=== PATIENT | female | born 1955 | race Caucasian/White ===

== ENCOUNTER 2018-09-06 13:23 | Observation (INO) | payer SELFPAY ==
[~2018-09-06] VITALS: Ht 167.6 cm; Wt 111.6 kg
[~2018-09-06 13:23] MED LIST: ADENOSINE 6 MG/2 ML (ADENOCARD) VIAL IV ONE; DILTIAZEM 125 MG/25 ML IV (CARDIZEM) IV ONE; DILTIAZEM 25 MG/5 ML INJ (CARDIZEM) VIAL ONE
--- NOTE | 2018-09-06 13:23 | NUR ---
Arrival by EMS. Hr 200. Patient is alert. Denies pain. On NRB 15l/min. sp02 98% BP 72/55. 20g ac to lac. Placed on crash cart monitor. patient flat 1326-ekg obtained. 18g iv to rt iv. labs and blood cultures obtained 1327-1l ns to rac open, 1l ns to lac open. HR will convert to SR with pac rate in 80's- will stay for 1-2 min then return to >190 1345-HR maintaining in the 80's bp 107/63. Rac fluids to tko. Patient denies c/o. assist pt with contacting family
[2018-09-06 13:47] LABS: BASOPHILS # (AUTO) 0.1 10^3/uL (0.0-0.1); BASOPHILS % (AUTO) 1 % (0-10); EOSINOPHILS # (AUTO) 0.2 10^3/uL (0.0-0.3); EOSINOPHILS % (AUTO) 2 % (0-10); HEMATOCRIT 45 % (35-52); HEMOGLOBIN 15.4 G/DL (11.5-16.0); LYMPHOCYTES # (AUTO) 4.6 X 10^3 (1.0-4.0); LYMPHOCYTES % (AUTO) 45 % (12-44); MEAN CORPUSCULAR HEMOGLOBIN 32 PG (25-34); MEAN CORPUSCULAR HGB CONC 35 G/DL (32-36); MEAN CORPUSCULAR VOLUME 93 FL (80-99); MEAN PLATELET VOLUME 9.6 FL (7.4-10.4); MONOCYTES # (AUTO) 0.8 X 10^3 (0.0-1.0); MONOCYTES % (AUTO) 8 % (0-12); NEUTROPHILS # (AUTO) 4.5 X 10^3 (1.8-7.8); NEUTROPHILS % (AUTO) 44 % (42-75); PLATELET COUNT 317 10^3/uL (130-400); RED CELL DISTRIBUTION WIDTH 14.4 % (10.0-14.5); WHITE BLOOD COUNT 10.2 10^3/uL (4.3-11.0)
--- OUTSIDE RECORDS SUMMARY | 2018-09-06 13:47 | XMS REPORT | Continuity of Care Document ---
Author Organization Unknown Address Unknown Allergies There is no data. Medications There is no data. Problems There is no data. Procedures There is no data. Results There is no data. Encounters ACCT No. Visit Date/Time Discharge Status Pt. Type Provider Facility Loc./Unit Complaint [id number] 07/12/2018 11:30:00 07/12/2018 23:59:59 CLS Outpatient [facility]
--- OUTSIDE RECORDS SUMMARY | 2018-09-06 13:47 | XMS REPORT ---
Author Author WESLY VALVERDE Organization [facility] Address [address] [place] [address] Care Team Providers Care Newspaper Delivery Driver Name Role Phone WESLY VALVERDE Unavailable PROBLEMS Type Condition ICD9-CM Code [id number] Code Onset Dates Condition Status SNOMED Code Problem Seasonal allergies J30.2 Active [id number] ALLERGIES No Known Allergies ENCOUNTERS Encounter Location Date Diagnosis [facility] [address] [facility] [id number] [address] Aug, Acute suppurative otitis media of both ears without spontaneous rupture of tympanic membranes, recurrence not specified H66.003 ; Lightheadedness R42 and Seasonal allergies J30.2 IMMUNIZATIONS No Known Immunizations SOCIAL HISTORY Never Assessed REASON FOR VISIT Fainting at [facility] this morning JStrasserRN PLAN OF CARE Activity Details Follow Up 1 Week, prn Reason:if symptoms not improving VITAL SIGNS Weight 294.6 lbs 2017-09-08 Temperature 98.5 degrees Fahrenheit 2017-09-08 Heart Rate 80 bpm 2017-09-08 Respiratory Rate 20 2017-09-08 Blood pressure systolic 132 mmHg 2017-09-08 Blood pressure diastolic 74 mmHg 2017-09-08 MEDICATIONS Medication Instructions Dosage Frequency Start Date End Date Duration Status Flonase 50 MCG/ACT Nasally twice a day 1 spray in each nostril 12h Aug, 30 day(s) Active Doxycycline Hyclate 100 MG Orally Once a day 1 capsule 24h Active Zyrtec Allergy 10 MG Orally Once a day 1 tablet 24h Active RESULTS No Results PROCEDURES No Known procedures INSTRUCTIONS MEDICATIONS ADMINISTERED No Known Medications
[2018-09-06 13:49] LABS: INR 0.9 (0.8-1.4); PROTHROMBIN TIME PATIENT 12.7 SEC (12.2-14.7)
[2018-09-06 13:52] LABS: BILIRUBIN,URINE NEGATIVE (NEGATIVE); CLARITY,URINE CLEAR; COLOR,URINE YELLOW; GLUCOSE, URINE (UA) NEGATIVE (NEGATIVE); KETONES,URINE NEGATIVE (NEGATIVE); LEUKOCYTE ESTERASE ,URINE NEGATIVE (NEGATIVE); NITRITE,URINE NEGATIVE (NEGATIVE); PH,URINE 6 (5-9); PROTEIN,URINE 1+ (NEGATIVE); UROBILINOGEN,URINE NORMAL (NORMAL)
[2018-09-06 14:00] LABS: BACTERIA,URINE NEGATIVE /HPF; SQUAMOUS EPITHELIAL CELL,UR 0-2 /HPF; WBC,URINE RARE /HPF
--- NOTE | 2018-09-06 14:00 | NUR ---
pt states that she does drink coffee in the morning 1-2 cups. then drinks green tea the rest of the day
[2018-09-06 14:02] LABS: ALANINE AMINOTRANSFERASE 6 U/L (0-55); ALBUMIN 3.8 GM/DL (3.2-4.5); ALKALINE PHOSPHATASE 75 U/L (40-136); BUN/CREATININE RATIO 14; CALCIUM 8.3 MG/DL (8.5-10.1); CARBON DIOXIDE 25 MMOL/L (21-32); CHLORIDE 106 MMOL/L (98-107); GFR ESTIMATED > 60; GLUCOSE 152 MG/DL (70-105); MAGNESIUM 1.9 MG/DL (1.8-2.4); POTASSIUM 3.4 MMOL/L (3.6-5.0); SODIUM 141 MMOL/L (135-145); TOTAL PROTEIN 6.1 GM/DL (6.4-8.2)
[2018-09-06] MEDS ORDERED: NS IV 1000 ML 2,000 ML ONE (14:14)
[2018-09-06 14:22] LABS: TSH (THYROID ANALYZER) 2.99 UIU/ML (0.35-4.94)
--- NOTE | 2018-09-06 14:27 | Diagnostic Imaging Report ---
EXAM: CHEST 1 VIEW, AP/PA ONLY INDICATION: Syncope. COMPARISON: None. FINDINGS: Normal heart size and pulmonary vascularity. No dense consolidation, pleural effusion or pneumothorax. No acute osseous findings. IMPRESSION: Negative chest. Dictated by: Dictated on workstation # [id number]
[2018-09-06] MEDS ORDERED: LACTATED RINGERS 1,000 ML IV ONE (14:29)
[2018-09-06 14:35] LABS: BILIRUBIN,TOTAL 0.5 MG/DL (0.1-1.0)
--- NOTE | 2018-09-06 14:46 | ED Cardiac General ---
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 Brought to rm 3 per ems. ALert and oriented Source: patient Exam Limitations: no limitations History of Present Illness Date Seen by Provider: Sep 06, 2018 Time Seen by Provider: 13:24 Initial Comments Here by EMS with report of patient who is feeling faint. EMS was summoned because she had this issue while at work and slumped over. Initially the call was for patient passing out or seizure. Patient states that she did not pass out. She felt herself slumped over and began to shake a little bit but she remembers the whole incident. She states during that time she was quite weak and felt fluttering in her chest. Chest and felt some chest pressure. She has never had anything like this before. EMS noted blood pressure was low and heart rate between 70s and 204. She apparently was fluctuating between SVT and sinus rhythm or tachycardia. Patient does admit to weakness and feeling funny. No one-sided weakness or other signs of stroke concerns. Patient states that she's never had anything like before. Does admit that she has been suffering from sinus problems recently and has been taking Zyrtec and to the direction of her doctor. She states that she does have allergies to antihistamines as they cause her blood pressure to go high but she does not have a problem with Zyrtec. EMS did initiate IV and gave 500 mL fluid bolus in route. On arrival, patient still vacillating between supraventricular tachycardia and what appears to be sinus or sinus tachycardia with PACs. Blood pressure on arrival 70s systolic. Patient placed on high flow oxygen as O2 saturation unreadable reasonable due to hypotension. Timing/Duration: 1/2 hour Severity: severe Location: central (pressure/palpitations) Prior CP/Workup: no prior chest pain Modifying Factors: improves with oxygen NTG SL DONOR SERVICES SPECIALIST: No ASA po DONOR SERVICES SPECIALIST: No Associated Systoms: Chest Pain; No Diaphoresis, No Fever/Chills, No Nausea/Vomiting; Shortness of Air, Syncope, Weakness Allergies and Home Medications Allergies Coded Allergies: Penicillins (Verified Allergy, Unknown, 09/06/18) codeine (Verified Allergy, Unknown, 09/06/18) oseltamivir (Verified Allergy, Unknown, 09/06/18) povidone-iodine (Verified Allergy, Unknown, 09/06/18) soap (Verified Allergy, Unknown, 09/06/18) Uncoded Allergies: ERYTHOMYCIN (Allergy, Unknown, 09/06/18) Patient Home Medication List Home Medication List Reviewed: Yes Review of Systems Review of Systems Constitutional: see HPI; No chills, No fever; weakness EENTM: See HPI, Nose Congestion, Other (sinus infection) Respiratory: See HPI; Denies Cough; Shortness of Air Cardiovascular: Chest Pain, Irregular Heart Rate, Lightheadedness, Palpitations Gastrointestinal: Denies Diarrhea, Denies Nausea, Denies Vomiting Genitourinary: No Symptoms Reported Musculoskeletal: no symptoms reported Skin: no symptoms reported All Other Systems Reviewed Negative Unless Noted: Yes Past Czqbpwq-Xalntx-Ogceme Hx Past Med/Social Hx: Reviewed Nursing Past Med/Soc Hx Patient Social History Alcohol Use: Denies Use Recreational Drug Use: No Smoking Status: Current Everyday Smoker Type Used: Cigarettes 2nd Hand Smoke Exposure: No Recent Foreign Travel: No Contact w/Someone Who Travel: No Recent Infectious Disease Expo: No Recent Hopitalizations: No Physical Abuse: No Sexual Abuse: No Mistreated: No Fear: No Seasonal Allergies Seasonal Allergies: Yes Past Medical History Surgeries: Yes Adenoidectomy (today. We will lobectomy and whatw so with your), Tonsillectomy, Tubal Ligation Respiratory: Yes Asthma, COPD Cardiac: Yes Heart Attack Neurological: No Genitourinary: No Gastrointestinal: Yes Hiatal Hernia Musculoskeletal: No Endocrine: No HEENT: No Cancer: No Psychosocial: No Integumentary: No Family Medical History Reviewed Nursing Family Hx No Pertinent Family Hx Physical Exam Vital Signs Vital Signs - First Documented 09/06/18 13:23 Temp 96.9 Pulse 192 Resp 21 B/P (MAP) 72/55 (61) Pulse Ox 98 O2 Delivery Non Rebreather O2 Flow Rate 15.00 FiO2 100 Capillary Refill : Less Than 3 Seconds Height, Weight, BMI Height: 5'5.00" Weight: 230lbs. oz. 104.821825vt; BMI Method:Estimated General Appearance: WD/WN, Moderate Distress, Obese HEENT: PERRL/EOMI, Pharynx Normal Neck: Non Tender, Supple Respiratory: Crackles (few scattered), Decreased Breath Sounds, Wheezing Cardiovascular: No Murmur, Irregularly Irregular, Tachycardia Gastrointestinal: Non Tender, Soft Extremity: Normal Range of Motion, Non Tender Neurologic/Psychiatric: Alert, Oriented x3 Skin: Normal Color, Warm/Dry Focused Exam Lactate Level 09/06/18 13:25: Lactic Acid Level 2.30*H 09/06/18 15:30: Lactic Acid Level Laboratory Tests Test 09/06/18 13:25 09/06/18 15:30 Lactic Acid Level 2.30 MMOL/L (0.50-2.00) *H Progress/Results/Core Measures Results/Orders Lab Results Laboratory Tests Test 09/06/18 13:25 09/06/18 13:42 09/06/18 15:30 Range/Units White Blood Count 10.2 4.3-11.0 10^3/uL Red Blood Count 4.80 4.35-5.85 10^6/uL Hemoglobin 15.4 11.5-16.0 G/DL Hematocrit 45 35-52 % Mean Corpuscular Volume 93 80-99 FL Mean Corpuscular Hemoglobin 32 25-34 PG Mean Corpuscular Hemoglobin Concent 35 32-36 G/DL Red Cell Distribution Width 14.4 10.0-14.5 % Platelet Count 317 130-400 10^3/uL Mean Platelet Volume 9.6 7.4-10.4 FL Neutrophils (%) (Auto) 44 42-75 % Lymphocytes (%) (Auto) 45 H 12-44 % Monocytes (%) (Auto) 8 0-12 % Eosinophils (%) (Auto) 2 0-10 % Basophils (%) (Auto) 1 0-10 % Neutrophils # (Auto) 4.5 1.8-7.8 X 10^3 Lymphocytes # (Auto) 4.6 H 1.0-4.0 X 10^3 Monocytes # (Auto) 0.8 0.0-1.0 X 10^3 Eosinophils # (Auto) 0.2 0.0-0.3 10^3/uL Basophils # (Auto) 0.1 0.0-0.1 10^3/uL Prothrombin Time 12.7 12.2-14.7 SEC INR Comment 0.9 0.8-1.4 Activated Partial Thromboplast Time 28 24-35 SEC D-Dimer 0.63 H 0.00-0.49 UG/ML Sodium Level 141 135-145 MMOL/L Potassium Level 3.4 L 3.6-5.0 MMOL/L Chloride Level 106 98-107 MMOL/L Carbon Dioxide Level 25 21-32 MMOL/L Anion Gap 10 5-14 MMOL/L Blood Urea Nitrogen 11 7-18 MG/DL Creatinine 0.80 0.60-1.30 MG/DL Estimat Glomerular Filtration Rate > 60 BUN/Creatinine Ratio 14 Glucose Level 152 H 70-105 MG/DL Lactic Acid Level 2.30 *H 0.50-2.00 MMOL/L Calcium Level 8.3 L 8.5-10.1 MG/DL Corrected Calcium 8.5 8.5-10.1 MG/DL Magnesium Level 1.9 1.8-2.4 MG/DL Total Bilirubin 0.5 0.1-1.0 MG/DL Aspartate Amino Transf (AST/SGOT) 13 5-34 U/L Alanine Aminotransferase (ALT/SGPT) 6 0-55 U/L Alkaline Phosphatase 75 40-136 U/L Myoglobin 58.6 10.0-92.0 NG/ML Troponin I < 0.028 <0.028 NG/ML C-Reactive Protein High Sensitivity 0.45 0.00-0.50 MG/DL B-Type Natriuretic Peptide 163.4 H <100.0 PG/ML Total Protein 6.1 L 6.4-8.2 GM/DL Albumin 3.8 3.2-4.5 GM/DL TSH [place] Testing 2.99 0.35-4.94 UIU/ML Urine Color YELLOW Urine Clarity CLEAR Urine pH 6 5-9 Urine Specific Jackson 1.010 L 1.016-1.022 Urine Protein 1+ H NEGATIVE Urine Glucose (UA) NEGATIVE NEGATIVE Urine Ketones NEGATIVE NEGATIVE Urine Nitrite NEGATIVE NEGATIVE Urine Bilirubin NEGATIVE NEGATIVE Urine Urobilinogen NORMAL NORMAL MG/DL Urine Leukocyte Esterase NEGATIVE NEGATIVE Urine RBC (Auto) NEGATIVE NEGATIVE Urine RBC NONE /HPF Urine WBC RARE /HPF Urine Squamous Epithelial Cells 0-2 /HPF Urine Crystals NONE /LPF Urine Bacteria NEGATIVE /HPF Urine Casts NONE /LPF Urine Mucus SMALL H /LPF Urine Culture Indicated NO My Orders Orders - SHERRI ELDER MD Cbc With Automated Diff (09/06/18 13:32) Magnesium (09/06/18 13:32) Chest 1 View, Ap/Pa Only (09/06/18 13:32) Ekg Tracing (09/06/18 13:32) Cardiac Profile 1 (09/06/18 13:32) Comprehensive Metabolic Panel (09/06/18 13:32) Myoglobin Serum (09/06/18 13:32) Protime With Inr (09/06/18 13:32) Partial Thromboplastin Time (09/06/18 13:32) O2 (09/06/18 13:32) Monitor-Rhythm Ecg Trace Only (09/06/18 13:32) Lipid Panel (09/07/18 06:00) Ed Iv/Invasive Line Start (09/06/18 13:32) BNP (09/06/18 13:32) Fibrin Degradation Products (09/06/18 13:32) Hs C Reactive Protein (09/06/18 13:32) Lactic Acid Analyzer (09/06/18 13:32) Thyroid Analyzer (09/06/18 13:32) Ua Culture If Indicated (09/06/18 13:32) Blood Culture (09/06/18 13:32) Sputum Culture (09/06/18 13:32) Ekg Tracing (09/06/18 13:32) Catheter(Urinary) Insert & Ass 03,15 (09/06/18 13:32) Ekg Tracing (09/06/18 13:46) Ns Iv 1000 Ml (Sodium Chloride 0.9%) (09/06/18 14:14) Ed Iv/Invasive Line Start (09/06/18 14:29) Lactated Ringers (Lr 1000 Ml Iv Solution (09/06/18 14:29) Aspirin Chewable Tablet (Baby Aspirin Ch (09/06/18 15:42) Echo W Doppler/Color Flow (09/07/18 08:00) Medications Given in ED Current Medications Medications Dose Ordered Sig/Erinn Route Start Time Stop Time Status Last Admin Dose Admin Lactated Ringer's 1,000 ml @ 0 mls/hr Q0M ONCE IV 09/06/18 14:29 09/06/18 14:31 DC 09/06/18 14:36 1,000 MLS/HR Sodium Chloride 2,000 ml @ ud STK-MED ONCE .ROUTE 09/06/18 14:14 09/06/18 14:20 DC 09/06/18 13:27 2,000 MLS/HR Vital Signs/I&O 09/06/18 09/06/18 13:23 13:23 Temp 96.9 Pulse 192 Resp 21 B/P (MAP) 72/55 (61) Pulse Ox 98 99 O2 Delivery Non Rebreather Non Rebreather O2 Flow Rate 15.00 15.00 FiO2 100 Blood Pressure Mean: 61 Progress Progress Note : Progress Note Seen and evaluated on arrival by EMS. Second IV established. Labs, EKG, chest x- ray, blood cultures and lactic acid ordered as etiology is currently unknown. I did discuss the case with Dr. Ross very early in the evaluation as she is having SVT changing to sinus with PACs rather rapidly. His recommendation is continue fluids and monitor for stability. We will hold on other agents for SVT including Cardizem and adenosine and see if patient becomes worse stable with fluids. Monitor patient. Carter catheter placed due to critical nature patient currently. 1415: Tachycardia has improved and patient now in sinus with multiple PACs. Blood pressure still low. She did get 500 mL normal saline from EMS and 2 L bolus are ongoing currently. 1515: Patient now doing much better and third liter bolus with LR was ordered which exceeds 30 mL/kg IV. Patient's lactic acid noted to be 2.3. Blood pressure has stabilized nicely at 130/81 currently heart rate is 65 and sinus rhythm and O2 sat 99% on 6 L via oxygen mask. Monitor patient. Currently no findings concerning for infection and this seems to be cardiac related although may have component of adverse effect of Zyrtec and dehydration. Monitor patient. 1529: ASA 300 mg by mouth. I did discuss the case with Dr. BERMEO. He sensation for admission, observation status. I did discuss the case with Dr. Ross at 1535 and he accepts patient in consult. He is requesting to be cardiac echo which was ordered. This will be done in the morning. All findings concerns were discussed with the patient who agrees with plan. Patient is stabilized and will go to medical floor on telemetry. Patient has Carter catheter in place and we will consider removing on arrival to floor. Initial ECG Impression Date: Sep 06, 2018 Initial ECG Impression Time: 13:26 Initial ECG Rate: 162 Initial ECG Rhythm: SVT Initial ECG Impression: SVT Initial ECG Comparisson: No Previous ECG Available Comment SVT noted after initial few beats of sinus rhythm with PACs. No evidence of ST elevation MO. Interpreted by me. Right axis deviation noted. EKG #1: EKG Time: 13:28 Rate: 189 Rhythm: SVT ECG Impression: SVT Comment Persistent SVT noted with right axis deviation. No evidence of ST elevation MO. Interpreted by me. EKG #2: EKG Time: 13:35 Rate: 93 Comment Sinus rhythm with PACs and occasional PVC noted. Rightward axis. No evidence of ST elevation MO. Interpreted by me. Change from previous of SVT. Diagnostic Imaging Diagonstic Imaging: Xray Plain Films/CT/US/NM/MRI: chest Comments [facility]ITAL[facility] Media [facility] [place], [place] NAME: CARL PHILIPPE [facility] REC#: [id number] PT STATUS: REG ER : 1955 PHYSICIAN: SHERRI ELDER MD ADMIT DATE: 09/06/18/ER Draft Date of Exam:09/06/18 CHEST 1 VIEW, AP/PA ONLY EXAM: CHEST 1 VIEW, AP/PA ONLY INDICATION: Syncope. COMPARISON: None. FINDINGS: Normal heart size and pulmonary vascularity. No dense consolidation, pleural effusion or pneumothorax. No acute osseous findings. IMPRESSION: Negative chest. Dictated on workstation # [id number] Dict: 09/06/18 1418 Trans: 09/06/18 1427 [facility] [id number] Interpreted by: VALENTIN ARMANDO MD Electronically signed by: Departure Communication (Admissions) Time/Spoke to Admitting Phy: 15:29 Time/Spoke to Consulting Phy: 15:35 Impression Primary Impression: Paroxysmal SVT (supraventricular tachycardia) Additional Impressions: Chest pain Qualified Codes: R07.9 - Chest pain, unspecified Lactic acidosis Disposition: ADMITTED INPATIENT Condition: Stable Admissions Decision to Admit Reason: Admit from ER (General) Decision to Admit/Date: Sep 06, 2018 Time/Decision to Admit Time: 15:29 SHERRI ELDER MD Sep 06, 2018 14:46
--- NOTE | 2018-09-06 15:05 | NUR ---
placed on facemask at 6l/min
--- NOTE | 2018-09-06 15:33 | NUR ---
lactic acid sent, o2 decreased to 2l/min spo2 100%. denies C/O.
[2018-09-06] MEDS ORDERED: ASPIRIN 81 MG CHEW (CHILDREN'S ASA) PO STA (15:42)
--- OUTSIDE RECORDS SUMMARY | 2018-09-06 16:01 | XMS REPORT | Continuity of Care Document ---
Author Organization Unknown Address Unknown Allergies There is no data. Medications There is no data. Problems There is no data. Procedures There is no data. Results There is no data. Encounters ACCT No. Visit Date/Time Discharge Status Pt. Type Provider Facility Loc./Unit Complaint [id number] 07/12/2018 11:30:00 07/12/2018 23:59:59 CLS Outpatient [facility]
--- NOTE | 2018-09-06 16:43 | NUR ---
CARL PHILIPPE admitted to room 406-1, with an admitting diagnosis of PAROXYSMAL ATRIAL TACHYCARDIA, on 09/06/18 from ED via STRETCHER, accompanied by ED RN. CARL PHILIPPE introduced to surroundings, call light, bed controls, phone, TV, temperature control, lights, meal times, smoking policy, visitor policy, side rail policy, bathrooms and showers. Patient Rights given to patient in the handbook. CARL PHILIPPE verbalizes understanding that [facility] is not responsible for the loss or damage to any personal effects or valuables that are kept in the patients possession during their hospitalization. The following Patient Care Plans were discussed with the PATIENT: Discharge Planning, CHEST PAIN and KNOWLEDGE DEFICIT. CARL PHILIPPE verbalizes understanding of Interdisciplinary Patient Education. Patient and/or family were informed about the Rapid Response Team and its purpose.
[2018-09-06 16:55] VITALS: BP 134/86
[2018-09-06] MEDS ORDERED: CATHETER FLUSH 10 ML SYR IV PRN (17:45)
[2018-09-06] MEDS ORDERED: ONDANSETRON 4 MG/2 ML (SDV) Z0FRAN IV PRN (17:45)
[2018-09-06] MEDS ORDERED: NITROGLYCERIN 0.4 MG SL TABS BTL 25'S SL PRN (17:45)
[2018-09-06 18:00] VITALS: BP 134/86
--- NOTE | 2018-09-06 18:04 | Consultation-Cardiology ---
HPI-Cardiology Cardiology Consultation Date of Consultation 09/06/18 Date of Admission Time Seen by Provider: 18:01 Indication: hypotension, tachycardia HPI 63 years old lady with history of seasonal allergy, suffered from gastroenteritis with persistent diarrhea yesterday, was doing well today, felt tired had no energy, had mild nausea. No vomiting or diarrhea today. Around k nown had an episode of near-syncope with extreme weakness and fatigue, not to the emergency room and noted to be severely hypotensive and having multiple episodes of paroxysmal atrial tachycardia. Denied any chest pain. Had palpitation and dizziness and lightheadedness, no similar episodes in the past. Has been taking Zyrtec only for seasonal allergy, no other medication Home Medications & Allergies Allergies: Coded Allergies: Penicillins (Verified Allergy, Unknown, 09/06/18) adhesive tape (Unverified Allergy, Unknown, Rash, 09/06/18) codeine (Verified Allergy, Unknown, 09/06/18) oseltamivir (Verified Allergy, Unknown, 09/06/18) povidone-iodine (Verified Allergy, Unknown, 09/06/18) soap (Verified Allergy, Unknown, 09/06/18) Uncoded Allergies: ERYTHOMYCIN (Allergy, Unknown, 09/06/18) Home Medication List Reviewed: Yes RPP-Pcygis-Wgypgi Hx Patient Social History Alcohol Use: Denies Use Recreational Drug Use: No Smoking Status: Current Everyday Smoker Type Used: Cigarettes 2nd Hand Smoke Exposure: No Recent Foreign Travel: No Recent Infectious Disease Expo: No Recent Hopitalizations: No Physical Abuse Screen: No Sexual Abuse: No Past Medical History Seasonal allergy Gastroenteritis Family Medical History Significant Family History: No Pertinent Family Hx Family Medical Hx Noncontributory Review of Systems-General Review of Systems Constitutional: see HPI; No chills; dizziness; No fever; malaise, weakness EENTM: see HPI, no symptoms reported Respiratory: see HPI; No cough, No dyspnea on exertion, No hemoptysis, No orthopnea, No phlegm, No short of breath, No stridor, No wheezing, No other Cardiovascular: see HPI, palpitations Gastrointestinal: see HPI, diarrhea, nausea Genitourinary: no symptoms reported, see HPI Musculoskeletal: no symptoms reported Skin: no symptoms reported Psychiatric/Neurological: No Symptoms Reported, See HPI All Other Systems Reviewed Negative Unless Noted: Yes Reviewed Test Results Reviewed Test Results Lab Laboratory Tests Test 09/06/18 13:25 09/06/18 13:42 09/06/18 15:30 Range/Units White Blood Count 10.2 4.3-11.0 10^3/uL Red Blood Count 4.80 4.35-5.85 10^6/uL Hemoglobin 15.4 11.5-16.0 G/DL Hematocrit 45 35-52 % Mean Corpuscular Volume 93 80-99 FL Mean Corpuscular Hemoglobin 32 25-34 PG Mean Corpuscular Hemoglobin Concent 35 32-36 G/DL Red Cell Distribution Width 14.4 10.0-14.5 % Platelet Count 317 130-400 10^3/uL Mean Platelet Volume 9.6 7.4-10.4 FL Neutrophils (%) (Auto) 44 42-75 % Lymphocytes (%) (Auto) 45 H 12-44 % Monocytes (%) (Auto) 8 0-12 % Eosinophils (%) (Auto) 2 0-10 % Basophils (%) (Auto) 1 0-10 % Neutrophils # (Auto) 4.5 1.8-7.8 X 10^3 Lymphocytes # (Auto) 4.6 H 1.0-4.0 X 10^3 Monocytes # (Auto) 0.8 0.0-1.0 X 10^3 Eosinophils # (Auto) 0.2 0.0-0.3 10^3/uL Basophils # (Auto) 0.1 0.0-0.1 10^3/uL Prothrombin Time 12.7 12.2-14.7 SEC INR Comment 0.9 0.8-1.4 Activated Partial Thromboplast Time 28 24-35 SEC D-Dimer 0.63 H 0.00-0.49 UG/ML Sodium Level 141 135-145 MMOL/L Potassium Level 3.4 L 3.6-5.0 MMOL/L Chloride Level 106 98-107 MMOL/L Carbon Dioxide Level 25 21-32 MMOL/L Anion Gap 10 5-14 MMOL/L Blood Urea Nitrogen 11 7-18 MG/DL Creatinine 0.80 0.60-1.30 MG/DL Estimat Glomerular Filtration Rate > 60 BUN/Creatinine Ratio 14 Glucose Level 152 H 70-105 MG/DL Lactic Acid Level 2.30 *H 1.11 0.50-2.00 MMOL/L Calcium Level 8.3 L 8.5-10.1 MG/DL Corrected Calcium 8.5 8.5-10.1 MG/DL Magnesium Level 1.9 1.8-2.4 MG/DL Total Bilirubin 0.5 0.1-1.0 MG/DL Aspartate Amino Transf (AST/SGOT) 13 5-34 U/L Alanine Aminotransferase (ALT/SGPT) 6 0-55 U/L Alkaline Phosphatase 75 40-136 U/L Myoglobin 58.6 10.0-92.0 NG/ML Troponin I < 0.028 <0.028 NG/ML C-Reactive Protein High Sensitivity 0.45 0.00-0.50 MG/DL B-Type Natriuretic Peptide 163.4 H <100.0 PG/ML Total Protein 6.1 L 6.4-8.2 GM/DL Albumin 3.8 3.2-4.5 GM/DL TSH [place] Testing 2.99 0.35-4.94 UIU/ML Urine Color YELLOW Urine Clarity CLEAR Urine pH 6 5-9 Urine Specific [place] 1.010 L 1.016-1.022 Urine Protein 1+ H NEGATIVE Urine Glucose (UA) NEGATIVE NEGATIVE Urine Ketones NEGATIVE NEGATIVE Urine Nitrite NEGATIVE NEGATIVE Urine Bilirubin NEGATIVE NEGATIVE Urine Urobilinogen NORMAL NORMAL MG/DL Urine Leukocyte Esterase NEGATIVE NEGATIVE Urine RBC (Auto) NEGATIVE NEGATIVE Urine RBC NONE /HPF Urine WBC RARE /HPF Urine Squamous Epithelial Cells 0-2 /HPF Urine Crystals NONE /LPF Urine Bacteria NEGATIVE /HPF Urine Casts NONE /LPF Urine Mucus SMALL H /LPF Urine Culture Indicated NO Physical Exam Physical Exam Vital Signs Vital Signs - First Documented 09/06/18 13:23 Temp 96.9 Pulse 192 Resp 21 B/P (MAP) 72/55 (61) Pulse Ox 98 O2 Delivery Non Rebreather O2 Flow Rate 15.00 FiO2 100 Capillary Refill : Less Than 3 Seconds Height, Weight, BMI Height: 5'6.00" Weight: 246lbs. 4.1oz. [id number]; 39.8 BMI Method:Estimated General Appearance: WD/WN, Moderate Distress, Obese HEENT: PERRL/EOMI, Pharynx Normal Neck: Non Tender, Supple Respiratory: Crackles (few scattered), Decreased Breath Sounds, Wheezing Cardiovascular: No Murmur, Irregularly Irregular, Tachycardia Gastrointestinal: Non Tender, Soft Extremity: Normal Range of Motion, Non Tender Neurologic/Psychiatric: Alert, Oriented x3 Skin: Normal Color, Warm/Dry A/P-Cardiology Admission Diagnosis PSVT Hypotension Gastroenteritis Diarrhea Assessment/Plan Paroxysmal supraventricular tachycardia, probably due to dehydration and hypotension, improved after receiving IV fluid. I will start low-dose beta blockers and evaluate tolerance and response. Hypotension, severe, secondary to dehydration. L at this time, continue on IV fluid and monitor closely Gastroenteritis with diarrhea, nausea, reporting improvement at this time. Monitor shows a Seasonal allergy. Near syncope, secondary to hypotension and dehydration. Clinical Quality Measures AMI/AHF: ASA po Prior to arrival: No DVT/VTE Risk/Contraindication: Risk Factor Score Per Nursin RFS Level Per Nursing on Admit: 4+=Very High NORY GARCIA MD Sep 06, 2018 6:04 pm
[2018-09-06] MEDS: NS IV 1000 ML 1,000 ML IV SCH (18:30)
[2018-09-06] MEDS ORDERED: morphine INJ 4 MG/ML 1 ML (VIAL/SYRINGE) IV PRN (19:00)
[2018-09-06 20:00] VITALS: BP 141/94
[2018-09-06] MEDS: meTOprolol TARTRATE 25 MG (LOPRESSOR) TABLET PO SCH (20:43)
--- NOTE | 2018-09-06 20:43 | NUR ---
HELD PATIENTS METOPROLOL TARTRATE PER PROTOCOL DUE TO PULSE OF 58.
[2018-09-06 20:57] VITALS: BP 141/94
[2018-09-06] MEDS ORDERED: RT-ALBUTEROL SULF 2.5 MG/3 ML PRE-MIX VIAL INH PRN (21:30)
[2018-09-06] MEDS: RT-ALBUTEROL/IPRATROPIUM 3 ML (DUONEB) VIAL INH SCH (21:42)
[2018-09-06 22:16] VITALS: BP 134/86
[2018-09-07 00:05] VITALS: BP 118/72
[2018-09-07 03:32] VITALS: BP 133/68
[2018-09-07] MEDS: NS IV 1000 ML 1,000 ML IV SCH ×2 (04:09→14:15)
[2018-09-07 06:52] LABS: BASOPHILS % (AUTO) 1 % (0-10); EOSINOPHILS # (AUTO) 0.3 10^3/uL (0.0-0.3); EOSINOPHILS % (AUTO) 4 % (0-10); HEMATOCRIT 40 % (35-52); HEMOGLOBIN 13.5 G/DL (11.5-16.0); LYMPHOCYTES # (AUTO) 3.2 X 10^3 (1.0-4.0); LYMPHOCYTES % (AUTO) 41 % (12-44); MEAN CORPUSCULAR HEMOGLOBIN 32 PG (25-34); MEAN CORPUSCULAR HGB CONC 34 G/DL (32-36); MEAN CORPUSCULAR VOLUME 94 FL (80-99); MEAN PLATELET VOLUME 9.4 FL (7.4-10.4); MONOCYTES # (AUTO) 0.8 X 10^3 (0.0-1.0); MONOCYTES % (AUTO) 10 % (0-12); NEUTROPHILS # (AUTO) 3.6 X 10^3 (1.8-7.8); NEUTROPHILS % (AUTO) 45 % (42-75); PLATELET COUNT 291 10^3/uL (130-400); RED CELL DISTRIBUTION WIDTH 14.8 % (10.0-14.5); WHITE BLOOD COUNT 7.9 10^3/uL (4.3-11.0)
[2018-09-07] MEDS: RT-ALBUTEROL/IPRATROPIUM 3 ML (DUONEB) VIAL INH SCH (06:52)
[2018-09-07 07:06] LABS: ALANINE AMINOTRANSFERASE 7 U/L (0-55); ALBUMIN 3.3 GM/DL (3.2-4.5); ALKALINE PHOSPHATASE 60 U/L (40-136); BILIRUBIN,TOTAL 0.4 MG/DL (0.1-1.0); BUN/CREATININE RATIO 11; CALCIUM 8.2 MG/DL (8.5-10.1); CARBON DIOXIDE 23 MMOL/L (21-32); CHLORIDE 110 MMOL/L (98-107); CHOLESTEROL 140 MG/DL (< 200); CREATININE SERUM 0.62 MG/DL (0.60-1.30); GFR ESTIMATED > 60; GLUCOSE 86 MG/DL (70-105); HDL CHOLESTEROL 46 MG/DL (40-60); POTASSIUM 3.8 MMOL/L (3.6-5.0); SODIUM 142 MMOL/L (135-145); TOTAL PROTEIN 5.3 GM/DL (6.4-8.2); TRIGLYCERIDES 56 MG/DL (<150); VLDL CHOLESTEROL 11 MG/DL (5-40)
[2018-09-07 08:33] VITALS: BP 133/77
[2018-09-07] MEDS ORDERED: ASPIRIN E.C. 81 MG (ECOTRIN) TAB PO SCH (09:00)
[2018-09-07] MEDS ORDERED: CETI10TA20 PO (09:18)
[2018-09-07] MEDS ORDERED: IBUP-30 PO (09:18)
--- NOTE | 2018-09-07 09:19 | NUR ---
PATIENT STATES SHE WAS NOT TAKING ANY PRESCRIPTION MEDICATIONS, SHE TAKES ZYRTEC AT HS AND IBU NEEDED OTC.
[2018-09-07] MEDS: meTOprolol TARTRATE 25 MG (LOPRESSOR) TABLET PO SCH (09:36)
--- NOTE | 2018-09-07 10:31 | History & Physical-Hospitalist ---
History of Present Illness HPI/Chief Complaint CC: Dizziness and tachycardia HPI: This is a 63yoWF clinic pt of Rita Pastrana in [facility] who has a PMH of allergies who presented to the ER with severe hypotension and atrial tachycardia. She was given aggressive IV fluids for volume depletion and cardiology was consulted. Pt had all of her labs and imaging scans reviewed including an echo cardiogram and she was deemed stable from cardiology placed on Metoprolol and baby Aspirin and I gave Questran for the diarrhea that seems to be improving as the hours progress. She was deemed stable for discharge close f/u with her PCP and medications were sent to the pharmacy. Source: patient, RN/MD Date Seen 09/07/18 Time Seen by a Provider: 10:00 Attending Physician Wade Riddle MD PCP No,Local Physician Referring Physician Date of Admission Sep 06, 2018 at 15:42 Home Medications & Allergies Home Medications Reviewed patient Home Medication Reconciliation performed by pharmacy medication reconciliations performing arts technicians and/or nursing. Patients Allergies have been reviewed. Allergies Allergies Coded Allergies Penicillins (Verified Allergy, Unknown, 09/06/18) adhesive tape (Unverified Allergy, Unknown, Rash, 09/06/18) codeine (Verified Allergy, Unknown, 09/06/18) oseltamivir (Verified Allergy, Unknown, 09/06/18) povidone-iodine (Verified Allergy, Unknown, 09/06/18) soap (Verified Allergy, Unknown, 09/06/18) Uncoded Allergies ERYTHOMYCIN ( Allergy, Unknown, 09/06/18) Past Oxcwswg-Alguzn-Orafdy Hx Past Med/Social Hx: Reviewed Nursing Past Med/Soc Hx, Reviewed and Corrections made Patient Social History Marrital Status: single Employed/Student: unemployed Alcohol Use: Denies Use Recreational Drug Use: No Smoking Status: Current Everyday Smoker Type Used: Cigarettes 2nd Hand Smoke Exposure: No Physical Abuse Screen: No Sexual Abuse: No Recent Foreign Travel: No Contact w/other who traveled: No Recent Hopitalizations: No Recent Infectious Disease Expo: No Immunizations Up To Date Pediatric: Yes Seasonal Allergies Seasonal Allergies: Yes (CEDAR,COTTONWO[place] TREES) Past Medical History Surgeries: Adenoidectomy (today. We will lobectomy and whatw so with your), Tonsillectomy, Tubal Ligation Cardiac: Heart Attack : No Gastrointestinal: Hiatal Hernia History of Blood Disorders: No Family History Reviewed Nursing Family Hx Cardiovascular disease MATERNAL GRANDFATHER Diabetes mellitus MATERNAL GRANDMOTHER Neoplasm 19 MOTHER (BREAST CANCER) SIBLINGS (OVARIAN XCXANCER) MATERNAL UNCLE (LYMPHOMA) Not obtainable due to adoption (PATIENT REPORTED SHE WAS ADOPTED SO SHE DIDN'T KNOW HER HISTORY. SHE THEN REPORTED SHE KNEW SOME INFORMATION FROM HER MOTHER'S SIDE OF THE FAMILY BUT NONE OF HER FATHERS) No Pertinent Family Hx Review of Systems Constitutional: see HPI, weakness EENTM: no symptoms reported Respiratory: no symptoms reported Cardiovascular: palpitations Gastrointestinal: no symptoms reported Genitourinary: no symptoms reported Musculoskeletal: no symptoms reported Skin: no symptoms reported Psychiatric/Neurological: No Symptoms Reported All Other Systems Reviewed Negative Unless Noted: Yes Physical Exam Physical Exam Vital Signs Vital Signs - First Documented 09/06/18 13:23 Temp 96.9 Pulse 192 Resp 21 B/P (MAP) 72/55 (61) Pulse Ox 98 O2 Delivery Non Rebreather O2 Flow Rate 15.00 FiO2 100 Capillary Refill : Less Than 3 Seconds Height, Weight, BMI Height: 5'6.00" Weight: 246lbs. 4.1oz. 111.475000oh; 39.8 BMI Method:Estimated General Appearance: No Apparent Distress, WD/WN, Chronically ill, Obese Eyes: Right Eye Normal Inspection, Right Eye PERRL HEENT: PERRL/EOMI, Normal ENT Inspection, Pharynx Normal, Moist Mucous Membranes Neck: Full Range of Motion, Normal Inspection, Non Tender Respiratory: Chest Non Tender, Lungs Clear, Normal Breath Sounds, No Accessory Muscle Use, No Respiratory Distress Cardiovascular: Regular Rate, Rhythm, No Edema, No Gallop, No JVD, No Murmur, Normal Peripheral Pulses Gastrointestinal: Normal Bowel Sounds, No Organomegaly, No Pulsatile Mass, Non Tender, Soft Back: Normal Inspection, No CVA Tenderness, No Vertebral Tenderness Extremity: Normal Capillary Refill, Normal Inspection, Normal Range of Motion, Non Tender, No Calf Tenderness, No Pedal Edema Neurologic/Psychiatric: Alert, Oriented x3, No Motor/Sensory Deficits, Normal Mood/Affect Skin: Normal Color, Warm/Dry Lymphatic: No Adenopathy Results Results/Procedures Labs Laboratory Tests 09/06/18 13:25 09/07/18 06:25 Patient resulted labs reviewed. Assessment/Plan Admission Diagnosis Assessment: Hypotension from volume depletion s/p aggressive IVF Paroxysmal atrial tachycardia Smoker Allergies Plan: IVF Appreciate Dr Ross Admission Status: Observation Diagnosis/Problems Diagnosis/Problems (1) Hypotension Status: Acute Qualifiers: Hypotension type: unspecified hypotension type Qualified Codes: I95.9 - Hypotension, unspecified (2) Volume depletion Status: Acute (3) Smoker Status: Chronic (4) Diarrhea Status: Acute Qualifiers: Diarrhea type: unspecified type Qualified Codes: R19.7 - Diarrhea, uns pecified (5) Paroxysmal SVT (supraventricular tachycardia) Status: Acute (6) Lactic acidosis Status: Acute (7) Elevated troponin I level Status: Acute Clinical Quality Measures AMI/AHF: ASA po Prior to arrival: No DVT/VTE Risk/Contraindication: Risk Factor Score Per Nursin RFS Level Per Nursing on Admit: 4+=Very High VIKTORIA HENAO DO Sep 07, 2018 10:31
--- NOTE | 2018-09-07 10:43 | Cardiology Progress Note ---
Subjective Date Seen by Provider: Sep 07, 2018 Time Seen by Provider: 10:39 Subjective/Events-last exam Patient is sitting up in bed, complains of nonproductive cough and generalized fatigue. Denies any chest pain or dyspnea. Focused Exam Lactate Level 09/06/18 13:25: Lactic Acid Level 2.30*H 09/06/18 15:30: Lactic Acid Level 1.11 Objective-Cardiology Exam Last Set of Vital Signs Vital Signs 09/06/18 09/07/18 20:00 12:16 Temp 97.0 Pulse 62 Resp 19 B/P (MAP) 130/78 (95) Pulse Ox 95 O2 Delivery Room Air O2 Flow Rate 0.00 FiO2 100 Capillary Refill : Less Than 3 Seconds I&O Intake and Output 09/07/18 00:00 Intake Total 2230 ml Output Total 1700 ml Balance 530 ml Intake Oral 730 ml IV Total 1500 ml Output Urine Total 1700 ml # Voids 4 Daily Weight Change No No General: Alert, Oriented X3, Cooperative HEENT: Atraumatic, PERRLA Lungs: Other (bilateral expiratory wheezing) Heart: Regular Rate, Normal S1, Normal S2, No Murmurs, Gallops Abdomen: Normal Bowel Sounds, No Tenderness, No Hepatosplenomegaly Extremities: No Clubbing, No Edema Skin: No Rashes, No Significant Lesion Neuro: Normal Speech, Cranial Nerves 3-12 NL Psych/Mental Status: Mental Status NL Results Lab Laboratory Tests 09/07/18 06:25 A/P-Cardiology Admission Diagnosis PSVT Hypotension Gastroenteritis Diarrhea Assessment/Plan Paroxysmal supraventricular tachycardia, probably due to dehydration and hypotension, improved after receiving IV fluid. Started on low-dose beta blockers and tolerating it well. Continue to monitor Hypotension, severe, secondary to dehydration. Better at this time, continue on IV fluid and monitor closely Gastroenteritis with diarrhea, nausea, was feeling better yesterday, having diarrhea again today, managed by primary care physician Seasonal allergy. Near syncope, secondary to hypotension and dehydration. Clinical Quality Measures AMI/AHF: ASA po Prior to arrival: No DVT/VTE Risk/Contraindication: Risk Factor Score Per Nursin RFS Level Per Nursing on Admit: 4+=Very High Supervisory-Addendum Brief Supervisory Addendum Participated in pt care: history, MDM, physical Personally performed: exam, history, MDM Care discussed with: MARLENA Notes: patient was seen and evaluated, feeling better, heart rate is better, having diarrhea again, receiving IV fluid. I recommend maintaining her on Toprol-XL as an outpatient follow-up as an outpatient in 2-4 weeks, continue to monitor. Gastric enteritis is managed by primary care physician FRIDA HARTLEY Sep 07, 2018 10:43 NORY GARCIA MD Sep 07, 2018 13:46
[2018-09-07 12:16] VITALS: BP 130/78
--- NOTE | 2018-09-07 13:33 | NUR ---
CM/SS spoke with the patient in regards to her concerns about financial assistance. Patient had completed the application for financial assistance, though, does not have the supporting documentation of her pay stubs / tax return. She will get those together and then submit the completed application.
[2018-09-07] MEDS ORDERED: ASPI-983 PO (13:44)
[2018-09-07] MEDS ORDERED: METO-333 PO (13:44)
[2018-09-07] MEDS ORDERED: CHOL4PAC16 PO (13:44)
[2018-09-07] MEDS ORDERED: CHOLESTYRAMINE 4 GM (QUESTRAN LITE, PREVALITE) PKT PO NR (14:15)
== END 2018-09-07 16:00 | disposition home or self-care (01) ==
LOC: ER 13:24 → 4TH 15:42
PROVIDERS: ADMIT Internal Medicine; ATTEND Internal Medicine
DX: E86.0 Dehydration (principal); I95.9 Hypotension, unspecified; K52.9 Noninfective gastroenteritis and colitis, unspecified; I47.1 Supraventricular tachycardia; J30.2 Other seasonal allergic rhinitis; E87.2 Acidosis; J44.9 Chronic obstructive pulmonary disease, unspecified; F17.210 Nicotine dependence, cigarettes, uncomplicated; Z79.899 Other long term (current) drug therapy; R55 Syncope and collapse; R79.89 Other specified abnormal findings of blood chemistry
CPT/HCPCS: 36415; 51702; 71045; 80053; 80061; 81000; 83605; 83735; 83874; 83880; 84443; 84484; 85025; 85027; 85379; 85610; 85730; 86141; 87040; 93005; 93041; 93306; 94640; 96360; 96361; G0378